=== PATIENT | female | born 1990 | race Caucasian/White ===

== ENCOUNTER 2017-03-23 20:56 | Emergency (ER) | payer BC ==
[~2017-03-23 20:56] MED LIST: PERC5TAB12 PO; TUMS500C CHEW
[2017-03-23 20:58] VITALS: BP 140/107; PULSE 144; RESP 20; TEMP 97.5; O2SAT 98
[2017-03-23] MEDS ORDERED: SODIUM CHLOR 0.9% 1000 ML INJ 1,000 ML IV SCH (21:16)
--- NOTE | 2017-03-23 21:21 | PD ---
HPI Chief Complaint: Allergic/Adverse Reaction Time Seen by Provider: 21:12 Travel History International Travel<30 days: No Contact w/Intl Traveler<30days: No Traveled to known affect area: No History of Present Illness HPI patient states over last month has had intermittent itchy hives ....today's episode onset this am, pt took benadryl and rajni in am, (took adderal for adhd only dx), denies any sob/wheezing/lip swelling/tongue swelling... denies any aggravating/alleviating factors...pt has appointment with benefits consultant this upcoming all:denies pmhx:adhd pshx denies PFSH Past Medical History LMP: 4 WEEKS AGO Social History Alcohol Use: No Tobacco Use: No Allergies-Medications (Allergen,Severity, Reaction): Coded Allergies: No Known Allergies (Unverified , 05/19/14) Reported Meds & Prescriptions Reported Meds & Active Scripts Active Pepcid (Famotidine) 40 Mg Tab 40 Mg PO DAILY Medrol Dosepak (Methylprednisolone) 4 Mg Dspk 4 Mg PO DIRECTED Per Pharmacist direction Percocet 5-325 mg (Oxycodone/Acetaminophen) Oxycodone 5/325 Acetaminophen Tab 1 Tab PO Q6H PRN Reported Tums (Calcium Carbonate) 500 Mg Chw 2 Tabs CHEW DIRECTED Review of Systems Except as stated in HPI: all other systems reviewed are Neg General / Constitutional: No: Fever Eyes: No: Visual changes HENT: No: Headaches Cardiovascular: No: Chest Pain or Discomfort Respiratory: No: Shortness of Breath Gastrointestinal: No: Abdominal Pain Genitourinary: No: Dysuria Musculoskeletal: No: Pain Skin: Positive Itching, Positive Hives Neurologic: No: Weakness Psychiatric: No: Depression Endocrine: No: Polydipsia Hematologic/Lymphatic: No: Easy Bruising Physical Exam Narrative GENERAL: SKIN: Warm and dry. HEAD: Atraumatic. Normocephalic. EYES: Pupils equal and round. No scleral icterus. No injection or drainage. ENT: No nasal bleeding or discharge. Mucous membranes pink and moist. no uvular edema, no stridor NECK: Trachea midline. No JVD. hives to right neck and supraspinatus region CARDIOVASCULAR: mild tachycardia and Regular rhythm. RESPIRATORY: No accessory muscle use. Clear to auscultation. Breath sounds equal bilaterally. no wheezing GASTROINTESTINAL: Abdomen soft, non-tender, nondistended. Hepatic and splenic margins not palpable. MUSCULOSKELETAL: Extremities without clubbing, cyanosis, or edema. No obvious deformities. NEUROLOGICAL: Awake and alert. No obvious cranial nerve deficits. Motor grossly within normal limits. Five out of 5 muscle strength in the arms and legs. Normal speech. PSYCHIATRIC: Appropriate mood and affect; insight and judgment normal. Data Data Last Documented VS Vital Signs Date Time Temp Pulse Resp B/P (MAP) Pulse Ox O2 Delivery O2 Flow Rate FiO2 03/23/17 21:37 103 145/81 03/23/17 20:58 97.5 20 98 Orders Orders Ecg Monitoring (03/23/17 21:16) Iv Access Insert/Monitor (03/23/17 21:16) Oximetry (03/23/17 21:16) Methylprednisolone So Succ Inj (Solumedr (03/23/17 21:30) Famotidine Inj (Pepcid Inj) (03/23/17 21:30) Sodium Chlor 0.9% 1000 Ml Inj (Ns 1000 M (03/23/17 21:16) Epinephrine (1:1000) Inj (Adrenalin (1:1 (03/23/17 21:30) Ed Discharge Order (03/23/17 21:57) MDM Medical Decision Making Medical Screen Exam Complete: Yes Emergency Medical Condition: Yes Medical Record Reviewed: Yes Differential Diagnosis allergy v cellulitis v lymphangitis Narrative Course on evaluation patient was noted to have hives without major respiratory symptoms....patient's tachycardia resolved, no angioedema noted. patient is currently stable to d/c home Diagnosis Primary Impression: hives Patient Instructions: General Allergic Reaction (ED), General Instructions Additional Instructions: KEEP YOUR APPOINTMENT WITH YOUR FUEL OIL TRUCK DRIVER TO FIND OUT SOURCE OF ALLERGY....ALSO TAKE BENADRYL OR CLARITIN BUT NOT BOTH TOGETHER AND YOU ONLY NEED TO TAKE IT ONCE A DAY, RATHER THAN MULTIPLE TIMES A DAY, SPECIALLY ONCE THE STEROIDS START WORKING YOU WILL HAVE DECREASE ITCHING Scripts Famotidine (Pepcid) 40 Mg Tab 40 MG PO DAILY, #8 TAB 0 Refills Prov: John Foley MD 03/23/17 Methylprednisolone Dosepak (Medrol Dosepak) 4 Mg Dspk 4 MG PO DIRECTED, #1 DSPK 0 Refills Per Pharmacist direction Prov: John Foley MD 03/23/17 Disposition: 01 DISCHARGE HOME Condition: Stable John Foley MD Mar 23, 2017 21:21
[2017-03-23 21:25] VITALS: BP 145/81; PULSE 105; PULSE 118; RESP 20; O2SAT 100; O2SAT 98
[2017-03-23] MEDS ORDERED: FAMOTIDINE 20 MG/2 ML VIAL IV PUSH ONE (21:30)
[2017-03-23] MEDS ORDERED: methylPREDNISolone SOD SUCC 125 MG/2 ML VIAL IV PUSH ONE (21:30)
[2017-03-23] MEDS ORDERED: EPINEPHrine HCL (1:1000) 1 MG/ML VIAL IM ONE (21:30)
[2017-03-23 21:37] VITALS: PULSE 103
[2017-03-23] MEDS ORDERED: FAMO1TAB73 PO (21:57)
[2017-03-23] MEDS ORDERED: MEDR4PAK PO (21:57)
[2017-03-23] MEDS ORDERED: ADDE30TA PO (22:22)
[2017-03-23 22:52] VITALS: BP 122/68
== END 2017-03-23 22:59 | disposition home or self-care (01) ==
LOC: MERGE 20:56 → PHED 20:56
DX: L50.9 Urticaria, unspecified (principal)
CPT/HCPCS: 96361; 96372; 96374; 96375; 99284; J0171; J2930; J7030

== ENCOUNTER 2017-07-29 02:04 | Emergency (ER) | payer BC, OTHER ==
[~2017-07-29] VITALS: Ht 167.6 cm; Wt 79.9 kg
[~2017-07-29 02:04] MED LIST changes: +ADDE30TA PO; +FAMO1TAB73 PO; +MEDR4PAK PO; -PERC5TAB12 PO; -TUMS500C CHEW
[2017-07-29 02:16] VITALS: BP 139/78; PULSE 102; RESP 18; TEMP 99.2; O2SAT 100
[2017-07-29] MEDS ORDERED: SODIUM CHLOR 0.9% 1000 ML INJ 1,000 ML IV SCH (02:27)
[2017-07-29] MEDS ORDERED: methylPREDNISolone SOD SUCC 125 MG/2 ML VIAL IM ONE (02:30)
[2017-07-29] MEDS ORDERED: SODIUM CHLORIDE 0.9% FLUSH 10 ML FLUSH IV FLUSH PRN (02:30)
[2017-07-29] MEDS ORDERED: diphenhydrAMINE HCL 50 MG/ML VIAL IVP ONE (02:30)
[2017-07-29] MEDS ORDERED: EPINEPHrine HCL (1:1000) 1 MG/ML VIAL IM ONE (02:30)
[2017-07-29] MEDS ORDERED: FAMOTIDINE 20 MG/2 ML VIAL IV PUSH ONE (02:30)
--- NOTE | 2017-07-29 02:33 | PD ---
HPI Chief Complaint: Allergic/Adverse Reaction Time Seen by Provider: 02:27 Travel History International Travel<30 days: No Contact w/Intl Traveler<30days: No Traveled to known affect area: No History of Present Illness HPI 26-year-old female presents to the emergency department for development of hives and right-sided lower lip swelling over the past 2 hours. Patient is taken Zantac and Zyrtec without relief. Patient has had similar reaction once before March 2017. Unknown precipitant allergen. Patient denies exposure to new foods and beverages noted linens no closing new detergents no shampoos no soaps no pets new furniture or known stressors. Patient denies family history of urticaria or angioedema. Patient denies . Patient denies any tongue or throat swelling but does state she thinks she might have strep throat as she noted some throat soreness 2 days ago. Patient does not report any shortness of breath wheezing near syncope syncope vomiting crampy abdominal pain or diarrhea. Patient is unaware of exacerbating or alleviating factors. PFSH Past Medical History Narrative Medical ADHD, idiopathic urticaria/angioedema, breast implants; tobacco use; nursing notes reviewed ADHD: Yes Diminished Hearing: No ?: Not LMP: 06/29/17 Past Surgical History Other Surgery: Yes (BREAST IMPLANTS) Social History Alcohol Use: Yes Tobacco Use: Yes (/ PPD) Substance Use: No Allergies-Medications (Allergen,Severity, Reaction): Coded Allergies: No Known Allergies (Verified Allergy, Unknown, 07/29/17) Reported Meds & Prescriptions Reported Meds & Active Scripts Active Epipen 2-Daniel Inj (Epinephrine) 0.3 Mg/0.3 Ml Pfpen 0.3 Mg IM ONCE PRN Prednisone 50 Mg Tab 50 Mg PO DAILY 4 Days Pepcid (Famotidine) 40 Mg Tab 40 Mg PO DAILY Medrol Dosepak (Methylprednisolone) 4 Mg Dspk 4 Mg PO DIRECTED Per Pharmacist direction Reported Adderall (Amphetamine-Dextroamphetamine) 30 Mg Tab 30 Mg PO BID Avoid late evening doses. Space doses at least 4 to 6 hours if more than once/day dosing. Review of Systems Except as stated in HPI: all other systems reviewed are Neg General / Constitutional: No: Fever, Chills HENT: Positive: Sore Throat, Other (Lower lip edema), No: Congestion Cardiovascular: No: Chest Pain or Discomfort, Palpitations, Syncope Respiratory: No: Shortness of Breath, Wheezing, Stridor Gastrointestinal: No: Nausea, Vomiting, Abdominal Pain Genitourinary: No: Flank Pain Musculoskeletal: No: Pain Skin: Positive Hives Neurologic: No: Weakness Psychiatric: Positive: Anxiety Hematologic/Lymphatic: No: Lymph Node Enlargement Physical Exam Narrative GENERAL: Well-developed well-nourished female in no acute respiratory distress no stridor or hoarseness. SKIN: Warm and dry. Generalized urticaria. HEAD: Normocephalic. EYES: No scleral icterus. No injection or drainage. ENT: Mucous membranes moist posterior pharynx no uvular edema no erythema no exudative change; airways patent; right lower lip angioedema NECK: Supple, trachea midline. No JVD or lymphadenopathy. CARDIOVASCULAR: Regular rate and rhythm without murmurs, gallops, or rubs. RESPIRATORY: Breath sounds equal bilaterally. No accessory muscle use. GASTROINTESTINAL: Abdomen soft, non-tender, nondistended. MUSCULOSKELETAL: No cyanosis, or edema. BACK: Nontender without obvious deformity. No CVA tenderness. Data Data Last Documented VS Vital Signs Date Time Temp Pulse Resp B/P (MAP) Pulse Ox O2 Delivery O2 Flow Rate FiO2 07/29/17 02:40 83 100 Room Air 07/29/17 02:40 16 07/29/17 02:35 136/79 07/29/17 02:16 99.2 Orders Orders Ecg Monitoring (07/29/17 02:27) Iv Access Insert/Monitor (07/29/17 02:27) Oximetry (07/29/17 02:27) Diphenhydramine Inj (Benadryl Inj) (07/29/17 02:30) Methylprednisolone So Succ Inj (Solumedr (07/29/17 02:30) Famotidine Inj (Pepcid Inj) (07/29/17 02:30) Sodium Chlor 0.9% 1000 Ml Inj (Ns 1000 M (07/29/17 02:27) Sodium Chloride 0.9% Flush (Ns Flush) (07/29/17 02:30) Epinephrine (1:1000) Inj (Adrenalin (1:1 (07/29/17 02:30) Group A Rapid Strep Screen (07/29/17 03:03) Strep Culture (Group A) (07/29/17 03:00) [facility] Medical Decision Making Medical Screen Exam Complete: Yes Emergency Medical Condition: Yes Medical Record Reviewed: Yes Interpretation(s) RSA: negative Differential Diagnosis Acute allergic reaction, idiopathic urticaria, angioedema, anaphylaxis, contact dermatitis, cellulitis Narrative Course 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 Patient continues to deny any shortness of breath has no stridor or hoarseness but does note persistent sore throat that she has had for the past 2-3 days. At this point time specimen is collected for rapid strep antigen. Patient continues to feel well desirous of being discharged home does not want to wait any longer for further observation no urticaria essentially completely resolved right lower lip angioedema airways patent no stridor no hoarseness no respiratory distress; patient provided prescription for EpiPen and prednisone and encouraged to continue [id number] Zantac and Benadryl per package directions. Patient is stable at this time for outpatient management. No work 1 day. Diagnosis Primary Impression: Acute allergic reaction Qualified Codes: T78.40XA - Allergy, unspecified, initial encounter Additional Impression: Angioedema of lips Qualified Codes: T78.3XXA - Angioneurotic edema, initial encounter Referrals: Primary Care Physician call for appointment Patient Instructions: General Instructions Departure Forms: Tests/Procedures, Work Release Special Instructions: no work x 1 day Additional Instructions: Increase fluid hydration Avoid overheating-- such as, avoid hot foods, beverages, and showers No work 1 day follow-up with your primary care provider and upper lining cementer Complete course of steroid as prescribed Take Zantac 150 twice daily for 7 days Take Benadryl 25-50 mg every 4-6 hours for urticaria/hives/allergic reaction Use EpiPen as prescribed as needed for allergic reaction and proceed to nearest emergency department Return to the emergency department for any concerns or change in condition Med/Other Pt SpecificInfo: Prescription(s) given Scripts Epinephrine Inj (Epipen 2-Daniel Inj) 0.3 Mg/0.3 Ml Pfpen 0.3 MG IM ONCE Y for ALLERGIC REACTION, #1 PACK 0 Refills Prov: Salter,Denise H. MD 07/29/17 Prednisone (Prednisone) 50 Mg Tab 50 MG PO DAILY for 4 Days, #4 TAB 0 Refills Prov: Denise Santos MD 07/29/17 Disposition: 01 DISCHARGE HOME Condition: Stable Denise Santos MD Jul 29, 2017 02:33
[2017-07-29 02:35] VITALS: BP 136/79; PULSE 103
[2017-07-29 02:40] VITALS: RESP 16; O2SAT 100
[2017-07-29] MEDS ORDERED: PRED50 PO (03:26)
[2017-07-29] MEDS ORDERED: EPIP0.3I IM (03:26)
== END 2017-07-29 04:38 | disposition home or self-care (01) ==
LOC: PHED 02:04
DX: T78.3XXA Angioneurotic edema, initial encounter (principal); F17.200 Nicotine dependence, unspecified, uncomplicated
CPT/HCPCS: 87081; 87880; 96361; 96372; 96374; 96375; 99284; J0171; J1200; J2930; J7030